=== PATIENT | male | born 1945 | race African-American/Black ===

== ENCOUNTER 2019-08-04 10:55 | Inpatient (IN) ==
[2019-08-04] MEDS ORDERED: LR 1,000 ML ONE (11:41)
[2019-08-04] MEDS ORDERED: KEFZOL 1 GM/D5W 1 GM/50 ML IVPB ONE (11:41)
--- NOTE | 2019-08-04 11:49 | EKG Report ---
Test Performed on : 08/04/2019 11:29:25 AM Test Reason : preop Blood Pressure : / mmHG Vent. Rate : 095 BPM Atrial Rate : 095 BPM P-R Int : 154 ms QRS Dur : 092 ms QT Int : 358 ms P-R-T Axes : 072 006 -22 degrees QTc Int : 449 ms Normal sinus rhythm. Inferior infarct , age undetermined Abnormal ECG No previous ECGs available Confirmed by Meli HDEZ, [place] ([id number]) on 08/04/2019 5:55:11 PM
[2019-08-04 12:02] LABS: HEMATOCRIT 44.1 % (42.0-52.0); HEMOGLOBIN 14.2 g/dL (14.0-18.0); MCH 26.5 PG (27-31); MCHC 32.2 g/dL (33-37); MCV 82.4 FL (81-99); MPV 8.7 FL (7.4-10.4); RBC 5.35 XMIL (4.7-6.1); RDW 12.4 % (11.5-14.5); WBC 9.54 X1000 (4.8-10.8)
[2019-08-04 12:41] LABS: CALCIUM 10.5 mg/dL (8.8-10.2); CREATININE 1.4 mg/dL (0.7-1.2); POTASSIUM 4.9 mmol/L (3.5-5.1)
[2019-08-04] MEDS ORDERED: DIPRIVAN 1% ONE (13:16)
[2019-08-04] MEDS ORDERED: ZOFRAN ONE (13:17)
[2019-08-04] MEDS ORDERED: FENTANYL ONE (13:19)
[2019-08-04] MEDS ORDERED: EPHEDRINE ONE (13:54)
[2019-08-04] MEDS ORDERED: NS 1,000 ML ONE (15:10)
[2019-08-04] MEDS ORDERED: NS 1,000 ML IV SCH (15:29)
[2019-08-04] MEDS ORDERED: ZOFRAN IV PRN (15:29)
[2019-08-04] MEDS ORDERED: DILAUDID IV PRN (15:29)
[2019-08-04] MEDS ORDERED: NORCO-10 PO PRN (15:29)
[2019-08-04 19:08] LABS: URINE SOURCE CLEAN CATCH
[2019-08-04 19:30] LABS: BILIRUBIN URINE NEGATIVE (NEGATIVE); BLOOD URINE NEGATIVE (NEGATIVE); COLOR YELLOW; GLUCOSE URINE 200 mg/dL (NEGATIVE); KETONE URINE 20 mg/dL (NEGATIVE); LEUKOCYTES URINE SMALL (NEGATIVE); NITRITE URINE POSITIVE (NEGATIVE); PH URINE 5.5; PROTEIN URINE TRACE mg/dL (NEGATIVE); SP GRAVITY URINE 1.019; TURBIDITY URINE CLEAR (CLEAR); UROBILINOGEN URINE NORMAL (NORMAL)
[2019-08-04 19:32] LABS: UR EPITHELIAL CELLS <10 /HPF (<10); URINE BACTERIA NEGATIVE /HPF; URINE RBC <10 /HPF (<10); URINE WBC <10 /HPF (<10)
--- NOTE | 2019-08-04 20:18 | OPERATIVE NOTE ---
PROCEDURE DATE: 08/04/2019 PROCEDURE PERFORMED: Left above-knee amputation. SURGEON: Kavin Price MD BODY MECHANIC APPRENTICE: Cande PREOPERATIVE DIAGNOSIS: Ischemic necrosis, left foot. POSTOPERATIVE DIAGNOSIS: Ischemic necrosis, left foot. DESCRIPTION OF PROCEDURE: Satisfactory general anesthesia was achieved. The left leg was prepped and draped in a sterile fashion. We made a curvilinear fishmouth keith above the knee. We then incised the skin into the subcutaneous fat throughout the extent of the keith. We then used electrocautery to go through the muscle, the subcutaneous tissue and the muscle both anteriorly and posteriorly. The superficial femoral artery was completely occluded. The vein was suture- ligated with 0 silk suture ligature. The tibial nerve was ligated with 3-0 Polysorb and divided. After dividing all the muscle groups, we came all the way to the distal femur. We then used a periosteal elevator to raise the tissue off the distal femur. We then transected the bone with a Gigli saw and handed off the knee and foot. We then used a file on the end of the femur to smooth it. We then copiously irrigated the stump. Small bleeding points were isolated and cauterized or sutured. After complete hemostasis was achieved, we then approximated the muscle groups with 0 Polysorb [id number] stitches. We used 3-0 Polysorb to approximate the subcutaneous tissue. We used delmis on the skin. We applied Xeroform, sterile 4 x 4s, sterile ABD and a sterile Kerlix, followed by a 6-inch Deangelo. He tolerated it well. He was sent to the recovery room in satisfactory condition. cc: Kavin Price MD [facility]
[2019-08-04] MEDS ORDERED: PROTEIN SUPPLEMENT PO SCH (21:00)
[2019-08-05 07:03] LABS: BASO# 0.07 X1000 (0.0-0.2); BASO% 0.7 % (0.0-0.8); EOS# 0.19 X1000 (0.0-0.7); HEMATOCRIT 38.5 % (42.0-52.0); HEMOGLOBIN 12.6 g/dL (14.0-18.0); IMM GRAN# 0.03 X1000 (0.0-0.04); IMM GRAN% 0.3 % (0.0-0.5); LYMPH# 1.83 X1000 (1.2-3.4); LYMPH% 19.1 % (20.5-51.1); MCH 27.5 PG (27-31); MCHC 32.7 g/dL (33-37); MCV 84.1 FL (81-99); MONO# 0.89 X1000 (0.11-0.59); MONO% 9.3 % (1.7-9.3); MPV 9.1 FL (7.4-10.4); NEUT# 6.56 X1000 (1.4-6.5); NEUT% 68.6 % (42.2-75.2); PLT 275 X1000 (130-400); RBC 4.58 XMIL (4.7-6.1); RDW 12.5 % (11.5-14.5); WBC 9.57 X1000 (4.8-10.8)
[2019-08-05 07:22] LABS: AGAP 14; BUN 30 mg/dL (8-22); CALCIUM 8.6 mg/dL (8.8-10.2); CHLORIDE 98 mmol/L (98-107); COSMO 278; CREATININE 1.1 mg/dL (0.7-1.2); ESTIMATED GFR > 60; GLUCOSE 223 mg/dL (70-104); POTASSIUM 4.5 mmol/L (3.5-5.1); SODIUM 132 mmol/L (136-145); TCO2 20 mmol/L (25-35)
[2019-08-05] MEDS ORDERED: THERA M PLUS PO SCH (09:00)
[2019-08-05] MEDS ORDERED: PERIDEX MT SCH (09:00)
[2019-08-05] MEDS ORDERED: KEFZOL 1 GM/D5W 1 GM/50 ML IVPB IV ONE (09:54)
--- NOTE | 2019-08-05 10:25 | DISCHARGE SUMMARY ---
ADMISSION DATE: 08/04/2019 DISCHARGE DATE: 08/05/2019 PRIMARY DISCHARGE DIAGNOSIS: Ischemic gangrene of the left foot. PRIMARY PROCEDURE: Left above knee amputation. HOSPITAL COURSE: Mr. Gandhi was admitted on the and underwent the above-noted procedure and his postop course was uneventful. The morning of the his stump was dry. He was tolerating liquids. His pain relief was adequate. It was felt he could be transferred back to [facility]. They are to change his bandage daily. He will return to see me in the office in 3 weeks for staple removal. Physical therapy will work with him at the facility and he will be up as per the facility protocol. He will resume his usual medications. I will give him some pain medication for his acute discomfort. cc: Kavin Price MD
[2019-08-05 11:18] VITALS: BP 148/88
--- NOTE | 2019-08-05 14:47 | GENERAL SURGERY PROGRESS NOTE ---
DATE: 08/05/2019 SUBJECTIVE: Mr. Gandhi is doing well this morning. His pain is controlled. He is taking his liquids fine. His white count is 9600 and hemoglobin 12.6. PLAN: The plan will be to return him to [facility] today. He will follow up with me in the office in 3 weeks. cc: Kavin Price MD
== END 2019-08-05 12:22 | DRG 240 ==
LOC: SURHOLD 10:55 → 4N 14:33
PROVIDERS: ADMIT Surgery; ATTEND Surgery